=== PATIENT | male | born 1995 | race Caucasian/White ===

== ENCOUNTER 2016-08-28 15:28 | Emergency (ER) | payer OTHER ==
[~2016-08-28] VITALS: Ht 185.4 cm; Wt 53.8 kg
[2016-08-28 15:37] VITALS: TEMP 36.9; Ht 185.4 cm; Wt 53.8 kg
--- NOTE | 2016-08-28 16:25 | DIAGNOSTIC IMAGING REPORT ---
LEFT ELBOW MIN 3 VIEWS ROUTINE CLINICAL HISTORY: Left elbow injury s/p fall COMPARISON: None FINDINGS: Positioning on this exam is suboptimal. There is a comminuted, mildly displaced fracture of the lateral epicondyle of the left humerus. Oblique projection demonstrates a 1 cm bone fragment along the medial aspect of the distal left humerus. There are soft tissue swelling overlying the olecranon. A left elbow joint effusion is present. IMPRESSION: 1. Acute comminuted, mildly displaced fracture of the lateral epicondyle of the distal left humerus. 2. 1 cm bone fragment adjacent to the medial epicondyle of the left humerus which could reflect an acute avulsed bone fragment. 3. Left elbow joint effusion. Electronically signed by: José Ricardo M.D. 08/28/2016 4:23 PM Dictated Date/Time: 08/28/2016 4:21 PM
[2016-08-28] MEDS ORDERED: NORCO 5/325MG HOME PACK PO ONE (16:45)
[2016-08-28] MEDS ORDERED: HYDR-5688 PO (16:45)
[2016-08-28 17:28] VITALS: BP 122/78; PULSE 83; O2SAT 98
--- NOTE | 2016-08-28 20:23 | EMERGENCY ROOM VISIT NOTE ---
ED Visit Note First contact with patient: 15:51 CHIEF COMPLAINT: Elbow pain HISTORY OF PRESENT ILLNESS: This 21-year-old male patient presents to the emergency department complaining of pain in the left elbow after falling while skateboarding just prior to arrival. The patient fell on an outstretched hand but does not have any discomfort of his hand or wrist. All of his discomfort is in his left elbow which is now swollen. The patient rates their pain as dull and 6/10. The patient has taken nothing for relief of the pain. The patient has not had previous fractures to this elbow. The patient does not have any numbness or tingling. The patient denies any other injuries. REVIEW OF SYSTEMS: A 6 system review of systems was completed with positives and pertinent negatives listed in the HPI. ALLERGIES: See EMR MEDICATIONS: No chronic medications PMH: Otherwise healthy lives SOCIAL HISTORY: Lives locally with family PHYSICAL EXAM: Vital Signs: Reviewed Nurse's notes, vital signs stable. GENERAL : White male, in no acute distress, well-developed, well-nourished. SKIN: The skin was without rashes, erythema, edema, warmth, or bruising. Capillary reflex less than 3 seconds. MUSCULOSKELETAL: There is tenderness over the olecranon of the left elbow. There is tenderness with flexion and supination of the left elbow. There is no tenderness of the shoulder, wrist, or hand. The patient is able to give a thumbs up, make an OK sign, and a #3 with their fingers. Radial pulse 2+. NEURO: Patient was alert and oriented to person place and time. Normal sensation to light and sharp touch. LEFT ELBOW MIN 3 VIEWS ROUTINE CLINICAL HISTORY: Left elbow injury s/p fall COMPARISON: None FINDINGS: Positioning on this exam is suboptimal. There is a comminuted, mildly displaced fracture of the lateral epicondyle of the left humerus. Oblique projection demonstrates a 1 cm bone fragment along the medial aspect of the distal left humerus. There are soft tissue swelling overlying the olecranon. A left elbow joint effusion is present. IMPRESSION: 1. Acute comminuted, mildly displaced fracture of the lateral epicondyle of the distal left humerus. 2. 1 cm bone fragment adjacent to the medial epicondyle of the left humerus which could reflect an acute avulsed bone fragment. 3. Left elbow joint effusion. EMERGENCY DEPARTMENT COURSE: Physical exam and history were performed. Nursing notes and EMR were reviewed. The patient appears to have suffered injury to his left elbow after falling while riding a skateboard. The patient' s primary discomfort is to the left elbow. X-rays were performed and read by myself and radiology as above. The patient does have a fractured elbow, and he was placed in an Ortho-Glass splint. Neurovascular status remained intact after placement. Arm sling was placed. The patient will be given a course of Vicodin for pain control. He will need to follow with orthopedics, and I did provide him the information for the on-call group. The patient was otherwise invited back to the ER with any new, worsening, or concerning symptoms. He voiced understanding of this plan and rated his discomfort a 2/10 at the time of departure. Current/Historical Medications Scheduled PRN Hydrocodone/Acetaminophen 5MG/325MG (Hen[place] 5MG/325MG), 1-2 TABLET PO Q6 PRN for Pain Allergies Coded Allergies: Atomoxetine (Verified Allergy, Intermediate, HALLUCINATIONS, 09/23/15) Penicillins (Unverified Allergy, Mild, 09/23/15) [place] Blue [facility]CF (Verified Allergy, Unknown, UNKNOWN, 09/23/15) Lisdexamfetamine (Verified Allergy, Unknown, UNKNOWN, 09/23/15) Red Dye (Verified Allergy, Unknown, UNKNOWN, 09/23/15) Yellow Dye (Verified Allergy, Unknown, UNKNOWN, 09/23/15) Vital Signs Date Time Temp Pulse Resp B/P Pulse Ox O2 Delivery O2 Flow Rate FiO2 08/28/16 17:28 83 18 122/78 98 08/28/16 17:04 83 18 122/78 98 Room Air 08/28/16 15:37 36.9 75 16 124/77 97 Room Air Medications Administered Medications (Trade) Dose Ordered Sig/Devendra Route Start Time Stop Time Status Last Admin Dose Admin Acetaminophen/ Hydrocodone Bitart ([place] 5/325mg Home Pack) 1 homepack UD ONCE PO 08/28/16 16:45 08/28/16 16:46 DC 08/28/16 17:04 1 HOMEPACK Departure Information Impression Primary Impression: Left elbow fracture Dispostion Home / Self-Care Prescriptions Hydrocodone/Acetaminophen 5MG/325MG (Hen[place] 5MG/325MG) Tab 1-2 TABLET PO Q6 Y for Pain, #24 TAB For Initial Treatment Prov: Christiana, Steve A., PA-C 08/28/16 Referrals Ronak Morocho MD Forms HOME CARE DOCUMENTATION FORM, IMPORTANT VISIT INFORMATION Patient Instructions [facility] HARVE[facility] Additional Instructions You were seen and evaluated today on an emergency basis only. This is not a substitute for, or an effort to provide, complete comprehensive medical care. It is not possible to recognize and treat all injuries or illnesses in a single emergency department visit. For this reason it is recommended that you followup with [facility] , Dr. Morocho's office, by telephone tomorrow morning to arrange a follow-up visit this week. Let the office know you were seen in the emergency department to help facilitate care. For baseline pain relief you may alternate ibuprofen and acetaminophen every 4 hours for pain control. Take 600 mg ibuprofen (Advil) and then 4 hours later take 1000 mg acetaminophen (Tylenol). Do not take more than 3000 mg acetaminophen in a single day. Henning (hydrocodone/acetaminophen) 5/325 mg ONE or TWO every 6 hours as needed for worsening breakthrough pain. Do not drink or drive on [place]. This medication will likely make you tired. Do not take Hen[place] and Tylenol at the same time as both contain acetaminophen. Henning may cause constipation. You may wish to take an [id number] stool softener like Colace if this occurs. Do not get your splint wet. Use your arm sling for comfort. You are welcome to return to the emergency department anytime with new, worsening, or concerning symptoms.
== END 2016-08-28 17:29 | disposition home or self-care (01) ==
LOC: C.EDB 15:29 → C.EDD 17:29
DX: S42.452A Displaced fracture of lateral condyle of left humerus, initial encounter for closed fracture (principal); W19.XXXA Unspecified fall, initial encounter; Y93.51 Activity, roller skating (inline) and skateboarding; Z88.0 Allergy status to penicillin; Z88.8 Allergy status to other drugs, medicaments and biological substances; Z91.09 Other allergy status, other than to drugs and biological substances